=== PATIENT | female | born 1935 | race Two or more races ===

== ENCOUNTER 2017-12-31 11:55 | Outpatient (CLI) | payer OTHER ==
[~2017-12-31 11:55] MED LIST: DILTIAZEM 24HR240 MG; GLIMEPIRIDE1 MG PO; GLIMEPIRIDE4 MG; GLIPIZIDE ER2.5 MG; JANUVIA100 MG PO; LIPITOR20 MG PO; NORVASC10 MG PO; VASOTEC10 MG NGT
== END 2017-12-31 11:58 | disposition home or self-care (01) ==
LOC: RAD 11:55
DX: J45.991 Cough variant asthma (principal)